=== PATIENT | female | born 1960 | race Caucasian/White ===

== ENCOUNTER 2017-07-11 06:44 | Day surgery (SDC) | payer MEDICAID ==
[2017-07-02 14:11] LABS: BASOPHILS % (AUTO) 0.4 % (0-1); EOSINOPHILS # (AUTO) 0.3 X10'3 (0-0.9); EOSINOPHILS % (AUTO) 2.4 % (0-6); LYMPHOCYTES # (AUTO) 2.8 X10'3 (1.1-4.8); LYMPHOCYTES % (AUTO) 22.1 % (21-51); MEAN CORPUSCULAR HEMOGLOBIN 31.4 PG (27.0-31.0); MEAN CORPUSCULAR HGB CONC 34.5 % (33.0-36.5); MEAN CORPUSCULAR VOLUME 90.9 FL (78-98); MEAN PLATELET VOLUME 9.1 FL (7.4-10.4); MONOCYTES # (AUTO) 0.7 X10'3 (0-0.9); MONOCYTES % (AUTO) 5.8 % (2-12); NEUTROPHILS # (AUTO) 8.9 X10'3 (1.8-7.7); NEUTROPHILS % (AUTO) 69.3 % (42-75); PRE OP HEMATOCRIT 43.5 % (35.0-45.0); PRE OP PLATELET COUNT 219 X10'3 (140-440); RED BLOOD COUNT 4.78 X10'6 (4.20-5.60); RED CELL DISTRIBUTION WIDTH 13.5 % (11.5-14.5)
[2017-07-02 14:26] LABS: ALBUMIN 3.7 G/DL (3.4-5.0); ALKALINE PHOSPHATASE 139 IU/L (46-116); BLOOD UREA NITROGEN 13 MG/DL (7-18); BUN/CREATININE RATIO 17.1 (6.6-38.0); CALCIUM 8.8 MG/DL (8.5-10.1); CHLORIDE 104 MMOL/L (99-107); CREATININE 0.76 MG/DL (0.40-0.90); PRE OP ALT 54 U/L (30-65); PRE OP ANION GAP 13 (8-16); PRE OP AST 24 U/L (10-37); PRE OP BILIRUB, TOTAL 0.4 MG/DL (0.0-1.0); PRE OP POTASSIUM 3.7 MMOL/L (3.4-5.1); PRE OP SODIUM 141 MMOL/L (135-145); TOTAL PROTEIN 7.3 G/DL (6.4-8.2); eGFR 79 ML/MIN
[2017-07-02 14:27] LABS: PRE OP GLUCOSE 322 MG/DL (70-104)
[~2017-07-11] VITALS: Ht 154.9 cm; Wt 106.6 kg
[~2017-07-11 06:44] MED LIST: APRIDA SQ; ARIP5TAB4 PO; DESV50TA PO; EMPA10TA PO; LAMO100T2 PO; LANTUS SQ; LEVO50TA8 PO; LORA0.5T PO; OMEP40CA37 PO; TIZA4TAB11 PO; clindamycin 600mg/D5W 50ml 50 ML IV ONE; famotidine 20mg tablet PO ONE; ringers solution, lacted 1,000 ML IV SCH
[2017-07-11] MEDS ORDERED: BUPIVAcaine/PF 2.5 mg/ml (0.25%) 30ml vial ONE (06:48)
[2017-07-11] MEDS ORDERED: LIDOcaine 1% (10mg/ml) 2ml vial ONE (06:55)
[2017-07-11 07:00] VITALS: BP 131/66
[2017-07-11] MEDS ORDERED: LIDOcaine 0.5% (5mg/ml) 50ml vial ONE (08:37)
[2017-07-11] MEDS ORDERED: fentaNYL/PF 50MCG/1 ML 2ML syringe ONE (08:39)
[2017-07-11] MEDS ORDERED: MIDAZolam 5mg/5ml vial ONE (08:39)
[2017-07-11] MEDS ORDERED: propofol inj 20 ML IV ONE (08:47)
[2017-07-11] MEDS ORDERED: sodium bicarbonate 1 MEQ/1 ml inj ONE (08:47)
[2017-07-11] MEDS ORDERED: ringers solution, lacted 1,000 ML IV SCH (09:03)
[2017-07-11] MEDS ORDERED: proCHLORperazine 10 MG/2 ml inj IV PRN (09:05)
[2017-07-11] MEDS ORDERED: fentaNYL/PF 50MCG/1 ML 2ML syringe IV PRN ×2 (09:05)
[2017-07-11] MEDS ORDERED: ondansetron/PF 4mg/2ml inj IV PRN (09:05)
[2017-07-11] MEDS ORDERED: morphine 4 MG/ML inj SYRINge IV PRN ×2 (09:05)
[2017-07-11 09:15] VITALS: BP 126/62
[2017-07-11 09:25] VITALS: BP 121/62
[2017-07-11 09:35] VITALS: BP 120/78
[2017-07-11 09:45] VITALS: BP 122/80
== END 2017-07-11 09:50 | disposition home or self-care (01) ==
LOC: PAS 06:44
PROVIDERS: ATTEND Orthopaedic Surgery Hand Surgery
DX: G56.02 Carpal tunnel syndrome, left upper limb (principal); M65.312 Trigger thumb, left thumb; Z87.891 Personal history of nicotine dependence; Z88.0 Allergy status to penicillin; Z88.5 Allergy status to narcotic agent; Z88.8 Allergy status to other drugs, medicaments and biological substances; Z79.899 Other long term (current) drug therapy
CPT/HCPCS: 26055; 29848; 36415; 80053; 82948; 83036; 85025; 93005; A6449; J2001; J2250; J2704; J3010; J3490; J7120; A7000